=== PATIENT | female | born 1995 | race Caucasian/White ===

== ENCOUNTER 2021-08-07 17:06 | Emergency (ER) | payer OTHER, SELFPAY ==
--- NOTE | ~2021-08-07 | XR_ITS ---
EXAMINATION: XR KNEE, LEFT CLINICAL INFORMATION: Knee pain COMPARISON: None TECHNIQUE: Four views of the left knee. FINDINGS: Normal articulation. Joint spaces are maintained. Subtle irregularity in the region of the tibial spines is suspected to be chronic. No acute fracture is otherwise seen. No effusion. XR/XR knee LT 4V IMPRESSION: No visible acute osseous abnormality.
[2021-08-07 21:49] VITALS: BP 150/98; PULSE 87; RESP 20; TEMP 36.9; O2SAT 100; BMI 21.9
--- NOTE | 2021-08-07 22:29 | ED.LOWEXIN ---
HPI - Extremity Injury (Lower) General Chief Complaint: Extremity Injury, Lower Stated Complaint: Fall/L knee pain Time Seen by Provider: 08/07/21 22:09 Source: patient Mode of arrival: wheelchair Limitations: no limitations History of Present Illness HPI Narrative: 25-year-old female who fell skiing and fell onto her left knee yesterday. Patient cannot bear weight, it is too painful. When she fell, she did not hit her head, no loss of consciousness, no numbness or tingling in her left leg. Patient has no pain unless she is bearing weight. States the pain feels like it is inside the joint. Patient has swelling around her knee, no redness or warmth. Patient has been seen at [facility] orthopedics for prior knee surgery. MD complaint: knee injury Onset (ago): day(s) (1) Type of Injury: unknown Place: street/outdoors Severity: moderate Severity scale (1-10): 5 Relieving factors: rest Exacerbating factors: weight bearing Context: fall Associated symptoms: swelling and unable to bear weight Other symptoms: none Related Data Allergies Allergy/AdvReac Type Severity Reaction Status Date / Time sulfamethoxazole Allergy Unknown unknown Verified 08/07/21 22:31 [From Bactrim] trimethoprim [From Bactrim] Allergy Unknown unknown Verified 08/07/21 22:31 Review of Systems Constitutional: Constitutional: Denies body ache(s), Denies chills, Denies fever(s), Denies headache(s), Denies malaise and Denies weakness Eyes: Eyes: Denies diplopia ENT: Denies vertigo, Denies dizziness, Denies headache(s) and Denies neck pain Cardiovascular: Cardiovascular: Denies chest pain, Denies syncope, Denies leg edema, Denies lightheadedness, Denies Loss of Consciousness and Denies dyspnea Respiratory: Respiratory: Denies cough and Denies dyspnea Gastrointestinal: Gastrointestinal: Denies abdominal pain, Denies constipation, Denies diarrhea and Denies vomiting Musculoskeletal: Musculoskeletal: Denies back pain, Reports arthralgias, Denies neck pain, Denies numbness and Denies tingling Integumentary/Breasts: Skin/Breast: Denies erythema and Denies rash Neurologic: Denies vertigo, Denies dizziness, Denies syncope, Denies headache(s), Denies numbness, Denies tingling and Denies weakness PMFSH Social History Social History Advance Directives: No Advance Directives Information Provided: No Physical Exam Vital Signs: Vital Signs: Last Vital Signs Temp 98.4 F 08/07/21 21:49 Pulse 87 08/07/21 21:49 Resp 20 08/07/21 21:49 BP 150/98 H 08/07/21 21:49 Pulse Ox 100 08/07/21 21:49 BMI result Body Mass Index 21.9 Const: General: cooperative, no acute distress, well developed, alert and awake Nutritional Appearance: well nourished Orientation/consciousness: patient oriented x3 Limitations: no limitations HENMT: Head: Yes normal to inspection, Yes No palpable skull fracture present, Yes normocephalic, Yes atraumatic, No Maciel's sign, No palpable skull fracture, No raccoon eyes and No scalp tenderness Eyes: Conjunctivae: conjunctivae normal Pupils: Equal, round and reactive pupils present EOM: EOMs intact bilaterally Neck: Neck: Yes full ROM, Yes no lymphadenopathy and Yes supple Resp: Effort & Inspection: normal respiratory effort and able to speak in complete sentences Auscultation: clear to auscultation bilaterally, no crackles, no rales, no rhonchi and no wheezes Cardio: Rate: regular rate Rhythm: regular rhythm Heart sounds: S1 normal heart sound present and S2 normal heart sound present Skin: General skin exam: no rashes or lesions noted Neuro: General: patient oriented x3, tone normal and moves all extremities Cranial nerves: Yes Equal, round and reactive pupils present Extrem: Left lower extremity: knee Details: tenderness Location: of the lateral joint line, swelling Location: of the infrapatellar area, normal ROM and knee ligament exam abnormal Details: valgus stress test Details: pain noted Psych: Appearance: grossly normal Affect: normal affect Attitude: cooperative Thought process: Normal thought process present Course Course Course Narrative: 25-year-old female presents for left knee injury that she sustained was seen yesterday. Patient fell onto her left knee. She has had prior surgeries on his knee by [facility]. On exam, patient has intact left lower extremity pulses, sensation, motor strength. She has lateral swelling and lateral joint line tenderness. She has valgus laxity. There is mild effusion of her lateral left knee. Patient is able to range her knee, she can flex it fully and extend it fully without pain. Patient has pain with standing. Knee immobilizer, crutches, counseled rest, ice, compression, elevation, follow-up with orthopedics. I also referred her to believe Orthopedics in case she can get not get in at [facility] Offer to prescribe naproxen, patient did not want any pain medication. Discharge Plan Discharge Clinical Impression: Left knee sprain Patient Disposition: Home, Self-Care Instructions: Knee Sprain (ED), Crutch Instructions (ED), R.I.C.E. Treatment (ED), Knee Immobilizer (ED) Additional Instructions: I have referred you to our orthopedic physician. They will be calling you in a couple of days for follow-up appointment. Please call [facility] if you prefer to see them. Please use your knee mobilizer and do not bear weight on your leg until your seen and released by orthopedics Please rest, ice, and elevate your leg. Referrals: Fernando Payton MD [Physician] - 2 days Stand Alone Forms: Work/School Release Interventions: ED Discharge Assessment Last Done: 08/07/21 23:19 Discharge Date/Time: 08/07/21 23:19
== END 2021-08-07 23:19 | disposition home or self-care (01) ==
PROVIDERS: Emergency Provider Emergency Medicine
DX: S83.92XA Sprain of unspecified site of left knee, initial encounter (principal); W17.81XA Fall down embankment (hill), initial encounter; M25.462 Effusion, left knee; Y93.23 Activity, snow (alpine) (downhill) skiing, snowboarding, sledding, tobogganing and snow tubing; Y92.828 Other wilderness area as the place of occurrence of the external cause; Y99.8 Other external cause status
CPT/HCPCS: 73564; 99283